=== PATIENT | female | born 1965 | race Caucasian/White ===

== ENCOUNTER 2018-01-29 04:35 | Emergency (ER) | payer MEDICAID ==
[~2018-01-29] VITALS: Ht 157.5 cm; Wt 59.9 kg
[~2018-01-29 04:35] MED LIST: DEXL60CA3 PO; SIMV20TA5 PO
[2018-01-29] MEDS ORDERED: LORazepam 1 MG tablet PO ONE (05:05)
[2018-01-29 05:17] VITALS: BP 143/88
[2018-01-30] MEDS ORDERED: LORA1TAB PO (08:51)
== END 2018-01-29 05:19 | disposition home or self-care (01) ==
LOC: ER 04:36
DX: F41.9 Anxiety disorder, unspecified (principal); Z79.899 Other long term (current) drug therapy
CPT/HCPCS: 93005; 99284

== ENCOUNTER 2018-01-30 08:18 | Emergency (ER) | payer MEDICAID ==
[~2018-01-30] VITALS: Ht 157.5 cm; Wt 60.6 kg
[2018-01-30 08:39] VITALS: BP 147/109
[2018-01-30] MEDS ORDERED: LORA1TAB PO (08:51)
[2018-01-30] MEDS ORDERED: LORazepam 1 MG tablet PO ONE (09:00)
== END 2018-01-30 09:07 | disposition home or self-care (01) ==
LOC: ER 08:18
DX: F41.9 Anxiety disorder, unspecified (principal); F17.200 Nicotine dependence, unspecified, uncomplicated; Z79.899 Other long term (current) drug therapy
CPT/HCPCS: 99284

== ENCOUNTER 2018-06-06 12:09 | Emergency (ER) | payer MEDICAID ==
[~2018-06-06] VITALS: Ht 157.5 cm; Wt 63.0 kg
[2018-06-06 14:44] LABS: BASOPHILS % (AUTO) 0.3 % (0-1); EOSINOPHILS # (AUTO) 0.1 X10'3 (0-0.9); HEMATOCRIT 41.6 % (35.0-45.0); HEMOGLOBIN 14.3 g/dl (12.0-16.0); LYMPHOCYTES # (AUTO) 1.8 X10'3 (1.1-4.8); LYMPHOCYTES % (AUTO) 20.9 % (21-51); MEAN CORPUSCULAR HEMOGLOBIN 31.1 PG (27.0-31.0); MEAN CORPUSCULAR HGB CONC 34.3 % (33.0-36.5); MEAN CORPUSCULAR VOLUME 90.6 FL (78-98); MEAN PLATELET VOLUME 9.8 FL (7.4-10.4); MONOCYTES # (AUTO) 0.3 X10'3 (0-0.9); MONOCYTES % (AUTO) 3.6 % (2-12); NEUTROPHILS # (AUTO) 6.5 X10'3 (1.8-7.7); NEUTROPHILS % (AUTO) 74.2 % (42-75); PLATELET COUNT 232 X10'3 (140-440); RED BLOOD COUNT 4.59 X10'6 (4.20-5.60); RED CELL DISTRIBUTION WIDTH 13.3 % (11.5-14.5); WHITE BLOOD COUNT 8.8 X10'3 (4.5-11.0)
[2018-06-06 14:46] LABS: CLARITY,URINE CLEAR (Clear); COLOR,URINE YELLOW (Yellow); GLUCOSE, URINE NEGATIVE (Neg); KETONES,URINE NEGATIVE (Neg); LEUKOCYTE ESTERASE ,URINE NEGATIVE (Neg); NITRITES, URINE NEGATIVE (Neg); OCCULT BLOOD,URINE MODERATE (Neg); PROTEIN,URINE NEGATIVE (Neg); URINE HCG NEGATIVE (NEG); UROBILINOGEN,URINE 0.2 E.U/dL (0.2-1.0)
[2018-06-06 15:00] LABS: UA COLLECTION TYPE CLN CATCH MIDSTREAM
[2018-06-06 15:00] LABS: ALANINE AMINOTRANSFERASE 34 U/L (12-78); ALBUMIN 3.8 G/DL (3.4-5.0); ALKALINE PHOSPHATASE 104 IU/L (46-116); ANION GAP 10 (8-16); ASPARTATE AMINO TRANSFERASE 23 U/L (10-37); BILIRUBIN,TOTAL 0.6 MG/DL (0.1-1.0); BLOOD UREA NITROGEN 10 MG/DL (7-18); BUN/CREATININE RATIO 12.3 (6.6-38.0); CALCIUM 8.9 MG/DL (8.5-10.1); CHLORIDE 103 MMOL/L (99-107); CREATININE 0.81 MG/DL (0.40-0.90); GLUCOSE 104 MG/DL (70-104); POTASSIUM 3.1 MMOL/L (3.5-5.1); SODIUM 140 MMOL/L (135-145); TOTAL CARBON DIOXIDE 26.7 MMOL/L (24-32); TOTAL PROTEIN 7.6 G/DL (6.4-8.2); eGFR 74 ML/MIN
[2018-06-06 15:01] LABS: BACTERIA,URINE FEW /HPF (Neg); MUCUS STRANDS MODERATE /LPF (Neg); RBC,URINE 0-2 /HPF (0-2); SQUAMOUS EPITHELIAL CELL,UR FEW /LPF (FEW); WBC,URINE 0-4 /HPF (0-4)
[2018-06-06 15:04] LABS: URINE AMPHETAMINE SCREEN NEGATIVE (Neg); URINE BARBITUATE SCREEN NEGATIVE (Neg); URINE BENZODIAZEPINES SCREEN NEGATIVE (Neg); URINE CANNABINOID SCREEN POSITIVE (Neg); URINE COCAINE SCREEN NEGATIVE (Neg); URINE METHADONE SCREEN NEGATIVE (Neg); URINE OPIATE SCREEN POSITIVE (Neg); URINE PHENCYCLIDINE SCREEN NEGATIVE (Neg)
[2018-06-06 15:09] LABS: ETHANOL < 0.010 GM/DL (0.0-0.010)
[2018-06-06] MEDS ORDERED: LORazepam 1 MG tablet PO ONE (16:10)
[2018-06-07] MEDS ORDERED: LORazepam 1 MG tablet PO ONE (04:15)
[2018-06-07] MEDS ORDERED: LORazepam 1 MG tablet PO PRN (06:10)
[2018-06-07] MEDS ORDERED: pantoprazole 40mg Tablet.DR PO SCH (07:30)
[2018-06-07] MEDS ORDERED: loperamide 2mg capsule PO PRN (09:05)
[2018-06-07] MEDS ORDERED: nicotine 21mg patch - 24 hr TD ONE (10:50)
[2018-06-07 17:04] VITALS: BP 123/83
[2018-06-07] MEDS ORDERED: non-formulary drug (Simvastatin* (Zocor*) 20 MG) PO SCH (21:00)
[2018-06-07] MEDS ORDERED: atorvastatin 10mg tablet PO SCH (21:00)
[2018-06-08] MEDS ORDERED: nicotine 21mg patch - 24 hr TD ONE (08:00)
== END 2018-06-07 17:07 | disposition home or self-care (01) ==
LOC: ER 12:11
DX: F32.9 Major depressive disorder, single episode, unspecified (principal); R45.851 Suicidal ideations; F41.9 Anxiety disorder, unspecified; F12.90 Cannabis use, unspecified, uncomplicated; F17.200 Nicotine dependence, unspecified, uncomplicated; Z79.899 Other long term (current) drug therapy
CPT/HCPCS: 36415; 80053; 80305; 80320; 81001; 81025; 84443; 85025; 99284

== ENCOUNTER 2019-06-18 18:36 | Emergency (ER) | payer MEDICAID ==
[~2019-06-18] VITALS: Ht 157.5 cm; Wt 65.0 kg
[2019-06-18 20:01] LABS: URINE HCG NEGATIVE (NEG)
[2019-06-18 20:02] LABS: CLARITY,URINE CLOUDY (Clear); COLOR,URINE YELLOW (Yellow); GLUCOSE, URINE NEGATIVE (Neg); KETONES,URINE NEGATIVE (Neg); LEUKOCYTE ESTERASE ,URINE LARGE (Neg); NITRITES, URINE NEGATIVE (Neg); OCCULT BLOOD,URINE LARGE (Neg); PROTEIN,URINE 30 mg/dl (Neg)
[2019-06-18 20:14] LABS: UA COLLECTION TYPE CLN CATCH MIDSTREAM
[2019-06-18 20:15] LABS: BACTERIA,URINE FEW /HPF (Neg); SQUAMOUS EPITHELIAL CELL,UR FEW /LPF (FEW); WBC CLUMPS,URINE FEW /HPF (NEGATIVE); WBC,URINE 50-100 /HPF (0-4)
[2019-06-18] MEDS ORDERED: CEPH-572 PO (20:27)
[2019-06-18] MEDS ORDERED: PHEN-824 PO (20:37)
[2019-06-18 20:40] VITALS: BP 123/55
== END 2019-06-18 20:41 | disposition home or self-care (01) ==
LOC: ER 18:48
DX: N39.0 Urinary tract infection, site not specified (principal); F41.9 Anxiety disorder, unspecified; F32.9 Major depressive disorder, single episode, unspecified; F12.90 Cannabis use, unspecified, uncomplicated; Z79.2 Long term (current) use of antibiotics; Z79.899 Other long term (current) drug therapy
CPT/HCPCS: 81001; 81025; 87077; 87088; 87186; 99283